=== PATIENT | male | born 1940 | race Caucasian/White ===

== ENCOUNTER 2016-03-14 11:42 | Day surgery (SDC) | payer OTHER, MEDICARE ==
[~2016-03-14] VITALS: Ht 185.4 cm; Wt 88.5 kg
[~2016-03-14 11:42] MED LIST: ASPIRIN81 MG PO; CENTRUM SILVER1 TA2 PO; CYMBALTA30 M1 PO; GABAPENTIN800 MG PO; LISINOPRIL20 MG PO; LYRICA25 MG PO; NEURONTIN800 MG PO; OXYCODONE HCL10 M1 PO; PERCOCET 10 MG1 EACH PO; ROXICODONE5 MG PO; SINGULAIR10 MG PO; VISTARIL25 MG PO
[2016-03-14 12:14] VITALS: BP 186/84
[2016-03-14 12:36] VITALS: BP 186/84
[2016-03-14 12:37] VITALS: BP 186/84
--- NOTE | 2016-03-14 12:42 | Procedure Note ---
Procedure detail Date of procedure: 03/14/16 Anesthesiologist: Xander womack CRNA Complications: None Pre-procedure diagnosis: Degenerative disc disease lumbar spine multiple levels lumbar radiculopathy symptoms. Post-procedure diagnosis: Same. Indications for procedure: This patient's pleasant 75-year-old white male that we've been treating her pain clinic for several things. Lumbar back pain secondary to degenerative disease lumbar spine with levels as well as lumbar radiculopathy symptoms. RIGHT shoulder and arm pain that he describes as intermittent. Cervical neck pain at times. Although, his main complaint is lumbar back pain with bilateral hip and leg radiculopathy symptoms. He describes pain as constant, dull, aching. He rates his low back pain a 6/10. Patient also taking Lyrica and has discontinued this himself. He did not like the way mating feel. He was to go back to gabapentin 800 milligrams 1 by mouth 3 times a day. We will change his for him today. Patient informed me he recently quit smoking. He is feeling much better. We medically manage the patient with oxycodone 10 mg 1 by mouth 4 times a day. Patient reports pain medicine decrease his pain by 50 percent. He does not reporting side effects in the pain medication. Procedure detail: Procedure: Lumbar epidural steroid injection under fluoroscopy Informed consent was obtained and the risks and benefits of the procedure were explained to the patient. The patient was taken to the procedure room and noninvasive monitors placed, including noninvasive blood pressure cuff and pulse oximeter. The back was viewed using C-arm Fluoroscopy and prepped using Betadine as a cleansing solution and the L5-S1 interspace was palpated. Skin and subcutaneous tissues were anesthetized using lidocaine 1.5% and a 25-gauge needle. After this, an 18-gauge Touhy epidural needle was placed into the L4-L5 interspace and advanced using fluoroscopic guidance and loss of resistance to air until the epidural space was encountered. After confirmation of needle placement in the epidural space, with dye, a solution containing lidocaine 1.5%, 4 mL and Depo-Medrol 80 mg were incrementally injected into the lumbar epidural space. The patient tolerated the procedure well with no complications. The patient was observed in the Pain Clinic and then discharged home neurologically intact. Plan and disposition: Patient was reevaluated 10 minutes post procedure. Patient reports pain seems to be doing somewhat better. I informed the patient would be a couple days for the cortisone made feel much better. He'll follow up with us the pain clinic for further evaluation. at [id number]
[2016-03-14 13:00] VITALS: BP 161/66
[2016-04-03] MEDS ORDERED: OXYCODONE HCL10 M1 PO ×2 (09:17)
== END 2016-03-14 13:00 ==
LOC: PM 11:42
PROC: 3E0R33Z Introduction of Anti-inflammatory into Spinal Canal, Percutaneous Approach (ICD-10-PCS; principal; 2016-03-14)
PROC: 3E0R3BZ Introduction of Anesthetic Agent into Spinal Canal, Percutaneous Approach (ICD-10-PCS; 2016-03-14)
DX: M51.16 Intervertebral disc disorders with radiculopathy, lumbar region (principal)
CPT/HCPCS: J1040; Q9966